=== PATIENT | female | born 1980 | race African-American/Black ===

== ENCOUNTER 2023-12-01 09:01 | Emergency (ER) | payer MEDICARE, MEDICAID, SELFPAY ==
[2023-12-01 09:08] VITALS: BP 146/106; PULSE 88; RESP 16; TEMP 36.7; O2SAT 96; BMI 28.5
--- NOTE | 2023-12-01 09:54 | CRLHL7_ITS ---
For Patients: As a result of the Century Cures Act, medical imaging exams and procedure reports are released immediately into your electronic medical record. You may view this report before your referring provider. If you have questions, please contact your health care provider. Indication: Cough Technique: Chest 2 views Comparison: None Findings/Impression: Cardiovascular and mediastinum: Heart size and vasculature are normal in caliber and appearance. Mediastinum is within normal limits. Lungs and pleural spaces: Lungs are clear. No sign of infiltrate or mass. No sign of pleural effusion. No pneumothorax. Bones and soft tissues: No significant findings. Dictated by Harshal Mart MD @ 12/01/2023 10:34:19 AM (Electronically Signed)
[2023-12-01 10:01] LABS: PCR FLU A Negative PCR FLU A (Negative); PCR FLU B Negative PCR FLU B (Negative); PCR RSV Negative PCR RSV (Negative); SARS PCR* Negative SARS-CoV-2 (Negative)
--- OUTSIDE RECORDS SUMMARY | 2023-12-01 10:05 | XMS_ITS | Referral Summary ---
Author Name Unknown Organization [facility] Address [address] [place] [address] Care Team Providers Care Supervisor Refining Name Role Phone Unavailable Primary Care Provider Unavailabl e Source Comments Patient records contain information from all sites at [facility]. For routine questions regarding patient records, call [phone] during business hours, M-F 8:00 AM - 5:00 PM Central Time. Record requests for emergency care only can be directed to [phone] at any time.[facility] Active Problems Problem Noted Date Diagnosed Date Hypertension Chronic 11/11/2016 Overview: Hypertension (HTN) Chronic Schizophrenia 11/11/2016 Overview: Schizophrenia NOS Depression Major Recurrent Moderate 11/11/2016 Overview: Depression Major Recurrent Moderate Social History Tobacco Use Types Packs/Day Years Used Date Smoking Tobacco: Never Nutrition Answer Date Recorded Nutrition: EVOO Fat Source Unknown 01/01 Nutrition: Servings of Fruits/Vegetables per Day Not on file 01/01/2021 Dental Answer Date Recorded Dental: Regular Dentist Unknown 01/03/20 21 Sex and Gender Information Value Date Recorded Sex Assigned at Not on file Gender Identity Not on file Sexual Orientation Not on file Last Filed Vital Signs Vital Sign Reading Time Taken Comments Blood Pressure 128/80 12/19/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
--- OUTSIDE RECORDS SUMMARY | 2023-12-01 10:05 | XMS_ITS | Clinical Summary ---
Author Name Unknown Organization [facility] Address [address] [place] [address] Care Team Providers Care Boiler Repairman Name Role Phone Unavailable Primary Care Provider Unavailabl e Source Comments PLEASE NOTE, if this patient is a minor, it may be UNLAWFUL to discuss sensitive information that is contained in these records (such as FAMILY PLANNING, MENTAL HEALTH or SUBSTANCE ABUSE) with the minor patient's parent or other person without the patient's specific authorization.[facility] Social History Tobacco Use Types Packs/Day Years Used Date Smoking Tobacco: Never Assessed Social Connections Answer Date Recorded Social Connections and Isolation 0 08/07/2020 Financial Resource Strain Answer Date R ecorded Financial Resource Strain 0 2019 Stress Answer Date Recorded Stress 0 08/07/2020 Physical Activity Answer Date Recorded Physical Activity 0 08/07/2020 Food Insecurity Answer Date Recorded Food 0 08/07/2020 Transportation Needs Answer Date Record ed Transportation 0 08/07/2020 Housing Stability Answer Date Recorded Housing 0 08/07/2020 Safety and Environment Answer Date Edward rded Safety 0 08/07/2020 Utilities Answer Date Recorded Utilities 0 08/07/2020 Employment Answer Date Recorded Employment 0 08/07/2020 Sex and Gender Information Value Date Recorded Sex Assigned at Not on file Gender Identity Not on file Sexual Orientation Not on file Plan of Treatment Not on file
--- OUTSIDE RECORDS SUMMARY | 2023-12-01 10:05 | XMS_ITS | Continuity of Care Document ---
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 ascending stairs, bending, changing positions, descending stairs, lifting, standing, twisting, walking and movement. Symptoms are relieved by heat, lying down, pain meds/drugs and rest. low back pain Severity level i s 6. Duration: chronic. The problem is worsening. It occurs persistently. The patient describes the pain as an ache, sharp and tingling. Symptoms are aggravated by ascending stairs, changing positions, descending stairs, lifting, walking and prolonged positioning. Symptoms are relieved by heat, ice, massage, pain meds/drugs, stretching and chiropractic. low back pain (comments) Winnie maria is here today for a followup and medication refill. She presents with #2 Percocet-short 1-2 tablets. Pain is worse. She states she was recently seen at [facility] for left hip pain where she was dx with greater trochanteric bursitis. A GT bursa injection was offered to the patient but she states she does not tolerate needles well. Patient is not accompanied today and has no further questions or other concerns. low back pain (comments) Winnie maria is here for follow up and medications refill. Presents with #3 percocet-- on track. Reports current medication regimen provides 70% pain relief. Denies side effects from current medication regimen. Pain is worse. Reports her left leg has been going out on her. She presents by herself and has no other concerns at today's OV. low back pain Severity level i s 7. Duration: chronic. The problem is worsening. It occurs persistently. Location of pain is middle back, lower back, gluteal area and left hip. Pain is radiated to the left thigh.The patient describes the pain as sharp and tingling. Symptoms are aggravated by ascending stairs, bending, daily activities, lifting, lying/rest, sitting, standing, movement and prolonged positioning. Symptoms are relieved by massage, pain meds/drugs, rest and changing positions. low back pain (comments) Winnie maria is here for follow up and medications refill. Presents with #16 percocet-- 3 day surplus. Reports current medication regimen provides 90% pain relief. Denies side effects from current medication regimen. Pain is changing. Of note, pt will be traveling to [place] to visit family. Pt presents with her young daughter and has no other concerns at today's OV.No other red flags or neurologic symptoms. low back pain Severity level i s 4. The problem is changing in character. It occurs intermittently. Location of pain is left hip.There is no radiation of pain. The patient describes the pain as an ache and burning. Symptoms are aggravated by daily activities, lying/rest, sitting, standing, movement and prolonged positioning. Symptoms are relieved by heat, massage, pain meds/drugs and changing positions. low back pain Severity level i s 9. Duration: chronic. The problem is fluctuating. It occurs intermittently. Location of pain is lower back and gluteal area. Pain is radiated to the BL hips.The patient describes the pain as an ache and tingling. Symptoms are aggravated by descending stairs, twisting, walking and prolonged positioning. Symptoms are relieved by pain meds/drugs and rest. low back pain (comments) Winnie maria is here today for follow up and medication management. Presents with #8 Percocet - on track. Reports 90% relief with their current regimen and denies any side effects.Innappropriate UDT on 07/16/18 positive for hydrocodone and metabolites. Patient states she may have taken 1-2 [place] before her appointment yesterday.Patient is not accompanied today and has no other questions or concerns. Low back pain Severity level i s 9. Duration: chronic. The problem is fluctuating. It occurs intermittently. Location of pain is lower back and bilateral hips.The patient describes the pain as an ache and tingling. Symptoms are aggravated by daily activities, lying/rest, sitting, standing and twisting. Symptoms are relieved by pain meds/drugs and rest. Low back pain (comments) Winnie maria is here for follow up and medications refill. Presents with #2-- 4 days short. States she may have self-escalated. Reports current medication regimen provides 80% pain relief. Denies side effects from current medication regimen. Pain is fluctuating. When inappropriate UDT from 06/05 OV was discussed, pt states she took tabs from old vicodin rx. She has no other concerns at today's OV. low back pain (comments) Ms. Carolyn davey is here for follow up and medications refill. Presents with #11 percocet - on track. Reports current medication regimen provides 50% pain relief. Denies side effects from current medication regimen. Pain is changing. States her low back pain has decreased somewhat since the b/l TFESI's performed on 06/05. Reports newer pain in her mid left back. Pt inquires about additional PT.No other red flags or neurologic symptoms. low back pain Duration: chroni c. The problem is fluctuating. It occurs persistently. Location of pain is middle back and lower back.The patient describes the pain as an ache, burning, sharp and tingling. Symptoms are relieved by pain meds/drugs and rest. low back pain (comments) Winnie maria is here for follow up and medications refill. Presents with #2 Percocet - approx. 2 days short. Reports current medication regimen provides 75% pain relief. Denies side effects from current medication regimen.States pain has been worsening since her last OV. Has begun PT, initially 2x/day but reduced to 1x/day. Most of PT involves manipulative therapy, with no active exercises. Percocet still continues to provide relief and reports taking a few tabs for increased relief.B/l L5 TFESI's done 06/05/[address] Saldivar and will assess relief at next visit.No other concerns today. low back pain Severity level i s 5. Duration: chronic. The problem is fluctuating. It occurs persistently. Location of pain is lower back.The patient describes the pain as an ache, burning, sharp and tingling. Symptoms are aggravated by ascending stairs, bending, daily activities, descending stairs, lying/rest, standing and walking. Symptoms are relieved by lying down, massage, pain meds/drugs and physical therapy. Additional information: Pt. reports ongoing back pain. low back pain (comments) Winnie maria is here for her low back pain. She is currently managed on Percocet 5mg BID, Celebrex 100mg BID and Robaxin 500mg QD prn. She has 5 tablets of her Percocet remaining- Surplus. She reports abdominal pain with her Celebrex and Robaxin. She has no other side effects with her other medications.She was referred for a bilateral L5-S1 TFESI on 02/18/18, however, she had to cancel d/t a tooth abcess and being on PCN. She requests to reschedule her injection today.She continues to attend PT sessions twice a week. low back pain Severity level i s 4-7. Duration: chronic. The problem is fluctuating. It occurs intermittently. Location of pain is lower back.There is no radiation of pain. The patient describes the pain as an ache, sharp and shooting. Symptoms are aggravated by lying/rest, sitting, PT and prolonged positioning. Symptoms are relieved by pain meds/drugs and changing positions. low back pain (comments) Winnie maria is here for f/u and medication management. Has #1 Percocet - surplus, as she was due out yesterday. Pain medications relieve 70% of her pain with no reported SE. Continues going to physical therapy twice a week which is helpful. States the leg pain has improved but the back pain is now radiating upwards. Recently got a gym membership and exercises twice a week. No other concerns. low back pain Duration: chroni c. It occurs persistently. Location of pain is upper back, middle back and lower back.The patient describes the pain as an ache, burning and sharp. Symptoms are aggravated by sitting, standing, walking and prolonged positioning. Symptoms are relieved by ice, pain meds/drugs, physical therapy, rest and exercise. low back pain (comments) Winnie maria is here for a followup and medication refill. She presents with #47 Percocet- on track. Medications provide 0% relief from pain. States current brand of Percocet is causing SE of stomach pain, constipation, and cramping. She has scheduled her PT appt, is unable to start until next month. Currently has an infection and has not been able to schedule injection. low back pain Severity level i s 8. Duration: chronic. The problem is worsening. It occurs persistently. Location of pain is upper back, middle back and lower back.The patient describes the pain as an ache, sharp and tingling. Symptoms are aggravated by ascending stairs, bending, descending stairs, lifting, lying/rest, sitting, standing, movement, housework and prolonged positioning. Symptoms are relieved by lying down, massage, pain meds/drugs, stretching, chiropractic and changing positions. low back pain Severity level i s 8. Duration: chronic. The problem is worsening. It occurs persistently. Location of pain is lower back.The patient describes the pain as an ache and sharp. Symptoms are aggravated by ascending stairs, bending, descending stairs, lifting, lying/rest, sitting, standing, twisting, housework, movement and prolonged positioning. Symptoms are relieved by heat, lying down, massage, pain meds/drugs, physical therapy and rest. low back pain (comments) Winnie maria is here for a followup. Continues to have low back pain with radiation down BL posterior thigh. States calling [facility] in [place] to schedule PT and was told they had not recieved her PT order, PT stated they would call her to schedule once order was recieved. C/o nausea, jittery, and headaches while taking Celebrex. Did not schedule injection ordered at last OV although she does report that she was called to schedule. low back pain Severity level i s 10. Duration: chronic. The problem is worsening. It occurs persistently. Location of pain is lower back and bilateral hips.The patient describes the pain as an ache and sharp. Symptoms are aggravated by ascending stairs, bending, descending stairs, lifting, sitting, standing, twisting, movement, housework, prolonged positioning and lying down. Symptoms are relieved by heat, massage, pain meds/drugs and changing positions. low back pain (comments) Winnie maria is here for initial follow up. Worst pain today is in low back pain, left mid back and BL hips. C/o subjective weakness in BL thighs. Denies numbness/tingling in BL feet. Pain is worse when sitting and lying down. Previous history of 4 sessions of PT in 2016. Completed lumbar MRI last week. Denies injections to back. Back Pain Onset: 2 years a go. Severity level is 8. Duration: chronic. The problem is fluctuating. It occurs persistently. Location of pain is middle back and lower back. Pain is radiated to the BL hips.The patient describes the pain as an ache, sharp and pins and needles. Symptoms are aggravated by changing positions, daily activities, lifting, sitting, twisting, walking, stairs, movement and evening/night. Symptoms are relieved by heat, massage, pain meds/drugs, physical therapy, rest and laying on stomach. Back Pain (comments) Effie carver s referred by Dr. Newman for initial consult of low back pain that began after the of her last child two years ago. Reports the pain was improving for awhile but has gotten worse over the past several weeks. The pain radiates into her bilateral hips; denies radiation into thighs or groin. Is much worse with sitting, and also while lying in bed. Feels better if she lies on her stomach or is in a hot bath. Does radiate intermittently into her thoracic spine. Lumbar x-ray done 02/01/2018--unsure of results. Completed 4-5 sessions of physical therapy in 2016 with little relief. Never tried injections.Cyclobenzaprine, skelaxin, and tizandine provided no pain relief. Previously on Cymbalta for depression but had too many SE. Currently taking ibuprofen 800mg multimes times/day and Tylenol extra strength, both minorly helpful. Tried Jon- with little relief. Functional Status Date Functional Assessmen t No Information Instructions Date Instruction Additional Infor mation No Information Assessments Type Assessment Date No Information Patient Care Teams Name Effective Dates (start - stop) Status Members No Information
--- OUTSIDE RECORDS SUMMARY | 2023-12-01 10:05 | XMS_ITS | Encounter Summary ---
Author Name Unknown Organization [facility] Address [address] [place] [id number] Care Team Providers Care Reprographics Associate Name Role Phone Unavailable Primary Care Provider Unavailabl e Reason for Visit * Reason Comments Office Visit: Converted Data Conversion Encounter Details Date Type Department Care Team (Late st Contact Info) Description 08/08/2020 Dental Interim Note [facility] [address] [place] [id number] Default, Schs Provider [place] Social History Tobacco Use Types Packs/Day Years [...] on file Sexual Orientation Not on file documented as of this encounter Plan of Treatment Scheduled Orders Name Type Priority Associated Diagnoses Order Schedule 3 ENDODONTIC THERAPY, MOLAR TOOTH (EXCLUDING FINAL YARSANISM) Dental Procedures Routine 1 Occurrenc es starting 08/03/2020 documented as of this encounter Visit Diagnoses Not on filedocumented in this encounter
--- OUTSIDE RECORDS SUMMARY | 2023-12-01 10:05 | XMS_ITS | Clinical Summary ---
Author Name Unknown Organization [facility] Address [place], [place] [address] Care Team Providers Care Pattern Chain Builder Name Role Phone Madeline Graf BOOTH SUPERVISOR Unavailable Unavailable Stephanie Garcia NP Primary Care Provider [phone] Allergies Active Allergy Reactions Criticality Noted Date Comments Shellfish Containing Products Anaphylaxis,Hives High 05/04/2018 Medications Medication Sig Dispensed Refills Start Date End Date Status food supplemt, lactose-reduced (Ensure)Indication s:Lack of appetite,Disorder of nutrition 1 bottle daily by mouth 3792 mL 10 2 Active Amphetamine-Dextro amphetamine (ADDERALL) 30 mg tablet Take 45 mg by mouth once daily. 0 3 Active QUEtiapine (SEROQUEL) 200 mg tablet Take 200 mg by mouth at bedtime. 0 3 Active etonogestreL-ethin yl estradioL (NUVARING) vaginal ringIndications:En counter for contraceptive management, unspecified type INSERT 1 RING VAGINALLY AND LEAVE IN PLACE FOR 3 CONSECUTIVE WEEKS THEN REMOVE FOR 1 WEEK AND REPEAT WITH NEW RING 3 Each 4 3 Active EpiPen 2-Vincent 0.3 mg/0.3 mL auto-injectorIndic ations:Seafood allergy ADMINISTER 0.3 ML IN THE MUSCLE 1 TIME NEEDED DIRECTED FOR ANAPHYLAXIS 2 Each 1 3 Active cholecalciferol (VITAMIN D3) 2,000 unit capsuleIndications :Vitamin D deficiency Take 1 Capsule (2,000 units) by mouth once daily. 90 Capsule 3 3 Active Suboxone 12-[address] 1 Film under the tongue once daily. prn 30 Tablet 0 3 Active amLODIPine (NORVASC) 5 mg tabletIndications: HTN (hypertension) Take 1 Tablet (5 mg) by mouth once daily. 90 Tablet 2 3 Active cyclobenzaprine (FLEXERIL) 5 mg tabletIndications: Pain Take 1 Tablet (5 mg) by mouth three times daily. 21 Tablet 0 3 Active Ventolin HFA 90 mcg/actuation inhalerIndications :Mild intermittent asthma without complication INHALE 2 PUFFS BY MOUTH EVERY 4 HOURS NEEDED 90 g 0 4 Active albuterol HFA (PRO-AIR; VENTOLIN; PROVENTIL) 90 mcg/actuation inhalerIndications :Mild intermittent asthma without complication INHALE 2 PUFFS BY MOUTH EVERY 4 HOURS NEEDED 18 g 3 3 11/13/19 24 Discontinued Active Problems Problem Noted Date Diagnosed Date Pap smear for cervical cancer screening 12/26/19 23 Overview: OV note 01/11/2014 Has history of abnormal paps- colposcopy in 2009 and normal since 2009 Abnormal pap 2009 [place] 02/2011 NIL 10/2012 NIL 11/2015 NIL 06/2020 NIL/HPV negative 12/2022 NIL/HPV negative Plan: Pap/HPV due in 5 years Opioid type dependence, continuous 07/30/2021 Overview: 02/17/20 [facility] Chemical dependency evaluation At emergency room requesting detox then declined and left 40 oxycodone daily Back pain MD prescription then street THC and trever UA opiates and cannabinoids Memory deficit 07/20/2020 Other chronic pain 03/21/2020 Overview: seeing provider for suboxone Dr Bowser Trigger finger of left thumb 08/24/2019 Posttraumatic stress disorder 07/28/2018 Degeneration of lumbosacral intervertebral disc 02/18/2018 Drug-seeking behavior 12/16/2017 Overview: 6 prescriptions for controlled substance from 6 different providers in 6 months Hypertension 11/11/2016 Overview: Overview: Hypertension (HTN) Chronic Chronic insomnia 09/25/2016 Major depression, recurrent 03/28/2015 Overview: Stopped taking zoloft abruptly at 200mg dose 2 weeks ago mid August 2019. 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 Overview: Diagnosis - 2003 PRISCILA (generalized anxiety disorder) 03/08/2011 Resolved Problems Problem Noted Date Diagnosed Date Resolved Date Encounter for IUD insertion 02/22/2017 09/24/2019 SAB (spontaneous ) 01/24/2017 0 02/22/2017 Overview: 16 weeks 2017 : [place] Premature rupture of membran es during , delivered 2017 02/22/2017 Spontaneous in second trimester 2017 02/22/2017 [facility] consult 01/02/2017 017 Overview: [facility] CONSULTATION REASON FOR CONSULT: H/O PPROM , placental abruption and delivery at 28 weeks in 2008, Currently TODAY'S APPOINTMENT: MD Consultation & ultrasound exam PRIMARY DIAGNOSIS: 36 y.o. Estimated Date of Delivery: 06/30/17 H/O PPROM , placental abruption and delivery at 28 weeks in 2008 Depression, Bipolar, Anxiety, Schizophrenia AMA CHTN HSV-genital LAST GROWTH: Scheduled 01/06/17 12/12/16 Viability at 11w6d REFERRING PHYSICIAN/PHONE/LAST UPDATE: Dr Baldomero Gallegos SPECIALISTS/PHONE: FAHAD: CARE COORDINATION: GENETICS: Scheduled for 01/09/17 PROCEDURES: PERTINENT LABS: PERTINENT MEDS: PLAN OF CARE: Surveillance for Depo-Provera contraception 02/01/2014 10/04/2016 Encounters Date Type Department Care Team Description 11/12/2023 [address] [place] [address] Stephanie Garcia NP Refill Request (Ventolin Hfa) 10/01/2023 4:20 PM SMALL ORDER CUTTER Office Visit [facility] [address] [place] [phone] Ashley Salazar DO Back Pain/problem (across lower back into right side x 2 weeks ); Dental Problem (upper left x 3 days) 10/01/2023 Travel 10/01/2023 Nurse Triage [facility] [address] [place] [address] Stephanie Garcia NP Flank Pain from Last 3 Months Immunizations Name Administration Dates Next Due Pneumococcal Conj 20-valent (Prevnar 20) 023 Tdap 11/11/2015,03/08/2011 Family History Medical History Relation Name Comments Mental illness Brother 1 Mental illness Brother 2 Seizures Father Hypertension Maternal Aunt 1 Hypertension Maternal Aunt 2 Diabetes Maternal Grandfather Hypertension Maternal Grandfather Asthma Maternal Grandmother Lung cancer Maternal Grandmother Hypertension Mother Mental illness Sister 1 Deshenna Other Son born premature Relation Name Status Comments Brother 1 Alive Brother 2 Alive Daughter 1 Alive Daughter 2 Alive Daughter 3 Alive Daughter 4 Alive Father Alive Maternal Aunt 1 Alive Maternal Aunt 2 Alive Maternal Grandfather Alive Maternal Grandmother Mother Alive Paternal Grandfather Paternal Grandmother Alive Sister 1 Deshenna Alive Sister 2 Alive Sister 3 Alive Sister 4 Alive Son Social History Tobacco Use Types Packs/Day Years Used Date Smoking Tobacco: Never Smokeless Tobacco: Never Tobacco Cessation:Counseling Given: Not Answered Comments:Cigars, 1 cigar a day she takes a few puffs Alcohol Use Standard Drinks/Week Comments No 0 (1 standard drink = 0.6 oz pur e alcohol) rarely PHQ-2 Answer Date Recorded PHQ-2 TOTAL SCORE 2 12/27/2022 Social Connections Answer Date Recorded Frequency of Communication with Friends and Fami ly Not on file 04/10/2023 Financial Resource Strain Answer Date R ecorded Difficulty of Paying Living Expenses 2 04/09/2022 Difficulty of Paying Living Expenses 1 04/09/2022 Food Insecurity Answer Date Recorded Worried About Running Out of Food in the Last Ye ar 2 04/09/2022 Transportation Needs Answer Date Record ed Lack of Transportation (Medical) 2 04/09/2022 Housing Stability Answer Date Recorded Unable to Pay for Housing in the Last Year 1 04/09/2022 Sex and Gender Information Value Date Recorded Sex Assigned at Not on file Gender Identity Not on file Sexual Orientation Not on file Obstetrics History Para Term AB IAB SAB Ectopic Multiple Livin g Live Births 7 4 3 1 3 1 2 4 5 Date Outcome GA Total Labor Labor/2nd/3rd Weight Sex Delivery Anes PTL Sera A1 A5 Name Cl in IAB 11/25 Term 40w 0d 3.35 kg (7 lb 6 oz) F Vag Alicia ng Florinda 05/26 Term 40w 0d 3.4 kg (7 lb 8 oz) F Vag Alicia ng Kimor a 03/01 28w 6d 1.19 kg (2 lb 10 oz) F Vag Y Alicia ng 8 9 Kaliy ah [facility] anks Delivery Location:[facility] Comments:PPROM, placen ta abruption 07/22 SAB 8w0 d SPONTANEO US Feta l Lanny se 05/17 Term 39w 6d 2.89 kg (6 lb 6 oz) F Vag N Alicia ng 01/15 SAB 16w 2d 0.11 kg (3.8 oz) M SPONTANEO US None N Neon atal Lanny se [place] on Delivery Location:[facility] Comments:advanced cerv ical dilation, BBOW with fetus through cervix Last Filed Vital Signs Vital Sign Reading Time Taken Comments Blood Pressure 162/104 10/01/2023 4:36 PM SMALL ORDER CUTTER Pulse 98 10/01/2023 4:45 PM SMALL ORDER CUTTER Temperature 36.7 ??C (98 ??F) 10/01/2023 4:36 PM SMALL ORDER CUTTER Respiratory Rate 18 10/01/2023 4:36 PM SMALL ORDER CUTTER Oxygen Saturation 99% 10/01/2023 4:36 PM SMALL ORDER CUTTER Inhaled Oxygen Concentration - - Weight 89.8 kg (198 lb) 10/01/2023 4:36 PM SMALL ORDER CUTTER Height 170.2 cm (5' 7) 06/23/2023 4:28 PM CDT Body Mass Index 31.01 06/23/2023 4:28 PM CDT Plan of Treatment Health Maintenance Due Date Last Done Comments COVID-19 vaccine series (#1) 1982 Influenza for age 9-49 06/27/2023 BMI (ht and wt on same day) for age 18+ 12/28/2023 12/27/2022, 04/09/2022, 12/07/2021, Additional history exists Depression screening for age 12+ 12/28/2023 12/27/2022, 07/30/2021, 07/20/2020, Additional history exists Tetanus booster 11/11/2025 11/11/2015, 02/24, 12/14/2010 (Declined) Pap test for age 21-65 12/28/2027 , 12/27/2022, 07/20/2020, Additional history exists HIV for age 15-65 Completed 11/02/2014, 01/11/2014 Tdap Completed 11/11/2015, 03/08/2011 Hepatitis C screening for ag e 18-79 Completed 12/27/2022 Pneumococcal series for age 6-64 Completed 12/28/19 23 Advance Directives Documents on File Type Date Recorded Patient Medical Assisting Instructor Expl anation Healthcare Directive 07/30/2012 1:57 PM Latest Code Status on File Code Status Date Activated Date Inactivated Comments Full Code 05/17/2015 4:13 AM 05/18/2015 2:47 PM Question Answer Comments Code Status Discussion: Discussed Code Status History Code Status Date Activated Date Inactivated Comments Full Code 05/16/2015 8:55 PM 05/17/2015 4:13 AM Question Answer Comments Code Status Discussion: Discussed Full Code 05/16/2015 6:54 PM 05/16/2015 8:55 PM Full Code 05/15/2015 10:36 PM 05/16/2015 1:14 AM Full Code 04/07/2015 2:29 PM 04/07/2015 5:32 PM Care Teams Pattern Chain Builder Relationship Specialty Start Date End Date Stephanie Garcia NP [address] [place] [address] [place] [address] PCP - General Family Practice 05/29/18 Madeline Graf NP Psychiatry Nurse Practitioner 10/25/16
--- OUTSIDE RECORDS SUMMARY | 2023-12-01 10:05 | XMS_ITS | Clinical Summary ---
Author Name Unknown Organization [facility] Address [address] [place] [address] Care Team Providers Care Stator Plate Washer Name Role Phone Unavailable Primary Care Provider Unavailabl e Source Comments Patient records contain information from all sites at [facility]. For routine questions regarding patient records, call [phone] during business hours, M-F 8:00 AM - 5:00 PM Central Time. Record requests for emergency care only can be directed to [phone] at any time.[facility] Active Problems Problem Noted Date Diagnosed Date Hypertension Chronic 11/11/2016 Overview: Hypertension (HTN) Chronic Schizophrenia 11/11/2016 Overview: Schizophrenia NOS Depression Major Recurrent Moderate 11/11/2016 Overview: Depression Major Recurrent Moderate Family History Medical History Relation Name Comments Seizures Father Diabetes Grandfather Maternal Asthma Grandmother Maternal Relation Name Status Comments Father Grandfather Maternal Grandmother Maternal Social History Tobacco Use Types Packs/Day Years [...] Comments Blood Pressure 128/80 12/19/2016 1:45 PM 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 Pulse 80 12/12/2016 8:49 AM WATER CONTROL SUPERVISOR Temperature - - Respiratory Rate - - Oxygen Saturation - - Inhaled Oxygen Concentration - - Weight 82.1 kg (181 lb) 12/19/2016 1:45 PM WATER CONTROL SUPERVISOR Height - - Body Mass Index - - Plan of Treatment Health Maintenance Due Date Last Done Comments Depression Monitoring (PHQ-9) 1982 Hepatitis B Vaccines (1 of 3 - 3-dose series) 1982 Hepatitis C Screening 1982 Mammogram 1982 Office Visit for Blood Pressure Check / Re-check 1982 COVID-19 Vaccine (#1) 1982 Influenza Vaccine (#1) 2023 DTaP,Tdap,and Td Vaccines (3 - Td or Tdap) 11/11/2025 11/11/2015, 03/08/2011 Cervical Cancer Screening 12/27/2025 12/27/2022 Lipid (Cholesterol) Screening 12/28/2027 12/27/2022 HIV Screening Completed 12/12/2016 Pneumococcal vaccine (0-64 years) Aged Out 12/27/2022 No longer eligible b ased on patient's age to complete this topic HPV Vaccines Aged Out No longer eligi ble based on patient's age to complete this topic [address] [place] [address]
--- OUTSIDE RECORDS SUMMARY | 2023-12-01 10:05 | XMS_ITS | Encounter Summary ---
Author Name Unknown Organization [facility] Address [address] [place] [address] Care Team Providers Care Graphic Editor Name Role Phone Unavailable Primary Care Provider Unavailabl e Reason for Visit * Reason Comments Flu Symptoms Breathing Problem Encounter Details Date Type Department Care Team (Late st Contact Info) Description 06/23/2023 4:23 PM CDT - 06/23/2023 5:04 PM CDT Emergency [facility] [address] [place] [id number] Retention Urinary (Primary Dx) Discharge Disposition: Home or Self Care Social History Tobacco Use Types Packs/Day Years [...] as of this encounter Plan of Treatment Not on file documented as of this encounter Visit Diagnoses Diagnosis Retention Urinary- Primary documented in this encounter
--- OUTSIDE RECORDS SUMMARY | 2023-12-01 10:05 | XMS_ITS | Clinical Summary ---
Author Name Unknown Organization [place] Address [facility] [place] [address] Care Team Providers Care Metal Tile Setter Name Role Phone Stephanie Garcia NP Primary Care Provider [phone] Allergies No known active allergies Medications Medication Sig Dispensed Refills Start Date End Date Status albuterol (PROAIR HFA, PROVENTIL HFA, VENTOLIN HFA) 108 (90 BASE) MCG/ACT inhaler Inhale 1-2 puffs into the lungs every 6 hours as needed for shortness of breath / dyspnea or wheezing 0 Active ferrous sulfate (IRON) 325 (65 FE) MG tablet Take 325 mg by mouth every evening 0 Active ARIPiprazole (ABILIFY) 2 MG tabletIndications: Depression affecting , antepartum Take 1 tablet (2 mg) by mouth every morning Increase to 2 tablets q am after 1st week 150 tablet 0 03/14/2015 Active HYDROcodone-acetam inophen (NORCO) 5-325 MG per tablet Take 1-2 tablets by mouth every 4 hours as needed for moderate to severe pain 15 tablet 0 12/06/2017 Active EPINEPHrine (EPIPEN/ADRENACLIC K/OR ANY BX GENERIC EQUIV) 0.3 MG/0.3ML injection 2-pack Inject 0.3 mLs (0.3 mg) into the muscle once as needed for anaphylaxis 0.6 mL 0 04/23/2018 Active famotidine (PEPCID) 20 MG tablet Take 1 tablet (20 mg) by mouth 2 times daily 30 tablet 0 02/17/2020 Active sucralfate (CARAFATE) 1 GM tablet Take 1 tablet (1 g) by mouth 4 times daily 30 tablet 0 02/17/2020 Active Active Problems Problem Noted Date Diagnosed Date premature rupture of membranes (PPROM) delivered, current hospitalization 2017 Spontaneous in second trimester 017 Anemia due to blood loss, acute 2017 Lumbago 11/10/2006 Cervicalgia 11/10/2006 Resolved Problems Problem Noted Date Diagnosed Date Resolved Date Indication for care in labor and delivery, delivered 2017 2017 Indication for care in labor and delivery, antepartum 01/14/2017 2017 Indication for care or inter vention related to labor and delivery 04/28/2015 2017 Overview: Diagnosis updated by automated process. Provider to review and confirm. Depression affecting , antepartum 03/13/2015 2017 Indication for care in labor or delivery 01/27/2015 2017 Encounter for triage in patient 12/31/2014 2017 Immunizations Name Administration Dates Next Due TDAP Vaccine (Adacel) 11/11/2015 Family History Medical History Relation Comments Asthma Daughter Diabetes Maternal Grandfather Hypertension Maternal Grandfather Hypertension Mother Relation Status Comments Daughter Maternal Grandfather Mother Social History Tobacco Use Types Packs/Day Years Used Date Smoking Tobacco: Never Smokeless Tobacco: Never Tobacco Cessation:Counseling Given: No Alcohol Use Standard Drinks/Week Comments No 0 (1 standard drink = 0.6 oz pur e alcohol) Adolescent Education Answer Date Record ed Getting School Help Needed Not on file 07/26 Sex and Gender Information Value Date Recorded Sex Assigned at Not on file Gender Identity Not on file Sexual Orientation Not on file Last Filed Vital Signs Vital Sign Reading Time Taken Comments Blood Pressure 159/112 08/22/2022 5:41 PM CDT Pulse 105 08/22/2022 5:32 PM CDT Temperature 37.1 ??C (98.8 ??F) 08/22/2022 1:47 PM CD T Respiratory Rate 20 08/22/2022 1:47 PM CDT Oxygen Saturation 100% 08/22/2022 1:47 PM CDT Inhaled Oxygen Concentration - - Weight 90.3 kg (199 lb 1.2 oz) 09/18/2019 3:39 P M 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 Height 170.2 cm (5' 7) 12/10/2017 12:16 AM 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 Body Mass Index 31.18 12/10/2017 12:16 AM 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 Plan of Treatment Health Maintenance Due Date Last Done Comments ADVANCE CARE PLANNING 1982 ANNUAL REVIEW OF HM ORDERS 1982 HEPATITIS B IMMUNIZATION (1 of 3 - 3-dose series) 1982 MAMMO SCREENING 1982 COVID-19 Vaccine (#1) 1982 HEPATITIS C SCREENING 01/16/2000 PAP 2003 LIPID 2022 MEDICARE ANNUAL WELLNESS VISIT 07/30/2022 07/30/2021, 07/20/2020 GLUCOSE 09/18/2022 09/18/2019, 08/27, 09/09/2017, Additional history exists INFLUENZA VACCINE (#1) 2023 PHQ-2 (once per calendar year) 2023 DTAP/TDAP/TD IMMUNIZATION (3 - Td or Tdap) 11/11/2025 11/11/2015, 03/08/2011 HIV SCREENING Completed 11/02/2014 HPV IMMUNIZATION Aged Out No longer e ligible based on patient's age to complete this topic IPV IMMUNIZATION Aged Out No longer e ligible based on patient's age to complete this topic MENINGITIS IMMUNIZATION Aged Out No l onger eligible based on patient's age to complete this topic Pneumococcal Vaccine: Pediatrics (0 to 5 Years) and At-Risk Patients (6 to 64 Years) Aged Out No longer eligible based on patient's age to complete this topic RSV MONOCLONAL ANTIBODY Aged Out No l onger eligible based on patient's age to complete this topic Advance Directives For more information, please contact: [phone] Latest Code Status on File Code Status Date Activated Date Inactivated Comments Full Code 2017 9:13 AM 09/18/2019 3:19 PM Code Status History Code Status Date Activated Date Inactivated Comments Full Code 03/14/2015 2:19 PM 2017 9:13 AM Care Teams Metal Tile Setter Relationship Specialty Start Date End Date Stephanie Garcia NP PCP - General Nurse Practitioner 09/18/19
--- OUTSIDE RECORDS SUMMARY | 2023-12-01 10:05 | XMS_ITS | Encounter Summary ---
Author Name Unknown Organization [place] Address [address] [facility] [place] [address] Care Team Providers Care Needleworker Name Role Phone Stephanie Garcia NP Primary Care Provider [phone] Reason for Visit * Reason Onset Date Comments MH/CD Inpatient 02/17/2020 Encounter Details Date Type Department Care Team ([facility] Contact Info) Description 02/17/2020 Telephone [facility] Intake [address] [place] [phone] Generic, Behavioral Intake, MH/CD Inpatient Social History Tobacco Use Types Packs/Day Years Used Date Smoking Tobacco: Never Smokeless Tobacco: Never Alcohol Use Standard Drinks/Week Comments No 0 (1 standard drink = 0.6 oz pur e alcohol) Sex and Gender Information Value Date Recorded Sex Assigned at Not on file Gender Identity Not on file Sexual Orientation Not on file COVID-19 Exposure Response Date Recorded In the last month, have you been in contact with someone who was confirmed or suspected to have Coronavirus / COVID-19? No / Unsure 02/17/2020 7:36 AM CDT documented as of this encounter Miscellaneous Notes * Telephone Encounter - Nahed David - 02/17/2020 6:51 AM CDT S: pt called seeking etoh and opiate detox. B: pt reports she has been using crack 1x and drinking etoh, unk amt, daily, to intoxication, unk for how long. She reports she has been using opiate pills daily and trying stuff for 2 months including xanax. Specifics unk. Pt very vague. A: pt requests detox. Travel screening completed. R: Bed held on 3A until 9 am. Author explained no guar of admit and explained the er process. Pt edward montalvo'ed in er. mbw documented in this encounter Plan of Treatment Not on file documented as of this encounter Visit Diagnoses Not on filedocumented in this encounter Care Teams Needleworker Relationship Specialty Start Date End Date Stephanie Garcia NP PCP - General Nurse Practitioner 09/18/19 documented as of this encounter
--- OUTSIDE RECORDS SUMMARY | 2023-12-01 10:05 | XMS_ITS | Referral Summary ---
Author Name Unknown Organization [place] Address [facility] 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
--- OUTSIDE RECORDS SUMMARY | 2023-12-01 10:05 | XMS_ITS ---
Author Name Unknown Organization [facility] Address [address] [place] [address] Care Team Providers Care Information Technology Specialist Name Role Phone Unavailable Unavailable Unavailable Surgery Details Not on file Complications Check Surgery Details section. Procedure Estimated Blood Loss Check Surgery Details section. Procedure Findings Check Surgery Details section. Procedure Specimens Taken Check Surgery Details section.
[2023-12-01 10:16] LABS: Ur HCG Qualitative* Negative (Negative)
[2023-12-01 10:39] LABS: Strep A DNA Probe* DETECTED (Not Detectd)
--- NOTE | 2023-12-01 11:13 | ED_ITS ---
HPI - Weakness General Date Seen: 12/01/23 Chief complaint: Cough Stated complaint: weakness Time Seen by Provider: 12/01/23 09:14 Source: patient and family Mode of arrival: ambulatory Limitations: no limitations History of Present Illness HPI Narrative: This very nice 43-year-old female presents here with a sore throat and a cough, she has had this for 2 days along with chills, decreased appetite but still swallowing fluids well, no overt fever at home but been taking Tylenol and ibuprofen she tells me. She did not receive any COVID vaccinations or influenza vaccinations, she is here today with her partner and he is feeling fine. No other sick contacts, Drinking well, does not feel dehydrated, no abdominal pain, no chest discomfort, denies any diarrhea nausea vomiting or dysuria associated with this. Does overall feel weak Related Data Home Medications Medication Instructions Recorded Confirmed albuterol sulfate 90 mcg/actuation 2 puff inhalation Q4H PRN 12/01/23 12/01/23 aerosol inhaler (Ventolin HFA) alprazolam 1 mg tablet 1 mg PO BID 12/01/23 12/01/23 amlodipine 5 mg tablet 5 mg PO DAILY 12/01/23 12/01/23 buprenorphine 12 mg-naloxone 3 mg 15 mg sublingual BID 12/01/23 12/01/23 sublingual film (Suboxone) cholecalciferol (vitamin D3) 50 50 mcg PO DAILY 12/01/23 12/01/23 mcg (2,000 unit) capsule dextroamphetamine-amphetamine 30 1.5 tab PO DAILY 12/01/23 12/01/23 mg tablet (Adderall) sertraline 100 mg tablet 100 mg PO DAILY 12/01/23 12/01/23 Previous Rx's Medication Instructions Recorded amoxicillin 500 mg capsule 500 mg PO TID #21 caps 12/01/23 Allergies Allergy/AdvReac Type Severity Reaction Status Date / Time No Known Drug Allergies Allergy Verified 12/01/23 09:12 Review of Systems Status of ROS: Reports: 10 or more systems reviewed and unremarkable except as noted in History and below [facility] Social History Smoking Status: Never smoker How often do you have a drink containing alcohol: 2-4 times a month AUDIT-C Alcohol total score: 2 Non-prescribed substance use: denies use Exam 2 Narrative: Exam Narrative: On examination in room 6 she is in no apparent distress she answers my questions and speaks normally. Her pupils are equal round reactive to light there is no scleral icterus redness or TMs bilaterally normal oropharynx is good mouth opening but there is red and large tonsils bilaterally with no real exudates, I do not see any petechiae on the soft palate however, no asymmetry between the 2 sides lymphadenopathy is 1+ bilaterally there is no meningismus in her neck is supple her chest is good air entry bilaterally with no wheezing crackles noted heart sounds are normal, abdomen is soft and benign there is no guarding, no Toro splenomegaly, moves extremities independently and well. Skin reveals no rashes. Const: Vital Signs, click to edit/add: Vital Signs - 24 hr 12/01/23 09:08 Temperature 98.1 F Pulse Rate [Pulse Oximeter] 88 Respiratory Rate 16 Blood Pressure [Le ft Upper Arm] 146/106 H Pulse Oximetry 96 Oxygen Delivery Me thod Room Air Documenting provider has reviewed patient's vital signs: yes Course Course ED Course: I discussed with her strep swab is positive, she is negative for influenza and COVID, I would recommend treatment with amoxicillin here, that will give us the best vanc for a block here, she should start to feel better in 24-48 hours, symptomatic measures such as Tylenol ibuprofen and gargling with the scope or Listerine is also suggested, Chloraseptic is also a nice treatment for this. We went over signs symptoms, such as asymmetry of her throat on viewing it, problems swallowing, that she should come back and be seen. Vital Signs Vital signs: Initial Vital Signs Temperature 98.1 F 12/01/23 09:08 Temperature Source Temporal Artery Scan 12/01/23 09:08 Pulse Rate 88 12/01/23 09:08 Respiratory Rate 16 12/01/23 09:08 Blood Pressure 146/106 H 12/01/23 09:08 Blood Pressure Mean 119 H 12/01/23 09:08 Blood Pressure Position Supine 12/01/23 09:08 Pulse Oximetry 96 12/01/23 09:08 Oxygen Delivery Method Room Air 12/01/23 09:08 Vital Signs Temperature 98.1 F 12/01/23 09:08 Pulse Rate 88 12/01/23 09:08 Respiratory Rate 16 12/01/23 09:08 Blood Pressure 146/106 H 02/05/24 09:08 Pulse Oximetry 96 12/01/23 09:08 Oxygen Delivery Method Room Air 12/01/23 09:08 Temperature 98.1 F 12/01/23 09:08 Pulse Rate 88 12/01/23 09:08 Respiratory Rate 16 12/01/23 09:08 Blood Pressure 146/106 H 12/01/23 09:08 Pulse Oximetry 96 12/01/23 09:08 Oxygen Delivery Method Room Air 12/01/23 09:08 MDM - Weakness MDM Narrative Medical decision making narrative: Differential diagnosis include a viral upper respiratory illness, histoplasmosis, tuberculosis, pneumonia, COPD exacerbation, emphysema, strep throat illness, bronchitis, asthma, reactive airway disease, chronic cough, medication side effects, allergic rhinitis with postnasal drip, foreign body aspiration, aspiration pneumonia, bronchiolitis, and gastroesophageal reflux disease as well as multiple other considerations. Medical Records Attestation: I reviewed the patient's medical records. Lab Data Attestation: I reviewed the patient's lab results. Labs: Lab Results 12/01/23 12/01/23 12/01/23 Range/Units 09:54 10:00 Unknown Urine HCG, Qual Negative (Negative) SARS-CoV-2 (PCR) Negative SARS-CoV-2 (Negative) Influenza Type A (PCR) Negative PCR FLU A (Negative) Influenza Type B (PCR) Negative PCR FLU B (Negative) RSV (PCR) Negative PCR RSV (Negative) Group A Strep DNA DETECTED A (Not Detectd) Imaging Data Chest x-ray: Attestation: I have reviewed the pertinent imaging results. My impression: No acute findings Discharge Plan Discharge Clinical Impression: Strep pharyngitis Patient Disposition: Home w/ Parent or Adult Condition: Stable Instructions: Pharyngitis (ED), Strep Throat (DC) Additional Instructions: Home, rest, use of medications as directed, amoxicillin 500 mg 3 times a day, ibuprofen 800 mg 3 times a day or 600 mg 4 times a day would be a good dose. Can supplement this with some acetaminophen also, and then also Chloraseptic spray as needed. The usual course is within 24-48 hours her feeling much improved. Worsening condition then please return. Activity Level: Light activity Prescriptions: New amoxicillin 500 mg capsule 500 mg PO TID Qty: 21 0RF No Action alprazolam 1 mg tablet 1 mg PO BID sertraline 100 mg tablet 100 mg PO DAILY amlodipine 5 mg tablet 5 mg PO DAILY dextroamphetamine-amphetamine [Adderall] 30 mg tablet 1.5 tab PO DAILY albuterol sulfate [Ventolin HFA] 90 mcg/actuation HFA aerosol inhaler 2 puff INHALATION Q4H PRN cholecalciferol (vitamin D3) 50 mcg (2,000 unit) capsule 50 mcg PO DAILY buprenorphine-naloxone [Suboxone] 12-3 mg film 15 mg sublingual BID Follow Up/Referrals: Laura Al [Primary Care Provider] - Stand Alone Forms: [facility] Info Instructions
== END 2023-12-01 11:09 | disposition home or self-care (01) ==
PROVIDERS: Emergency Provider Family Medicine; PCP Internal Medicine
DX: J02.0 Streptococcal pharyngitis (principal)
CPT/HCPCS: 71046; 81025; 87631; 87651; 99283

== ENCOUNTER 2025-09-02 10:46 | Outpatient (CLI) | payer MEDICARE, SELFPAY | END 2025-09-02 10:47 | disposition home or self-care (01) | PROVIDERS: PCP Internal Medicine; Visit Provider Nurse Practitioner Family | DX: R00.2 Palpitations (principal); I10 Essential (primary) hypertension; Z13.6 Encounter for screening for cardiovascular disorders | CPT/HCPCS: 80053; 80061; 84443; 85025 ==